=== PATIENT | female | born 1995 | race Caucasian/White ===

== ENCOUNTER 2019-03-04 14:11 | Emergency (ER) | payer BC ==
[2019-03-04] MEDS ORDERED: NS 1,000 ML IV ONE (14:30)
[2019-03-04] MEDS ORDERED: ONDANSETRON 4 MG/2 ML VIAL IVP ONE (14:30)
== END 2019-03-04 16:10 | disposition home or self-care (01) ==
DX: K31.84 Gastroparesis (principal); E86.9 Volume depletion, unspecified

== ENCOUNTER 2019-03-05 08:42 | Emergency (ER) | payer BC ==
[2019-03-05] MEDS ORDERED: NS 1,000 ML IV ONE (09:17)
[2019-03-05] MEDS ORDERED: PROMETHAZINE HCL 25 MG/ML INJ IVP ONE (09:17)
--- NOTE | 2019-03-05 10:56 | EDPHY ---
H & P Stated Complaint: n/v - Personal History Current Tetanus/Diphtheria Vaccine: Yes Current Tetanus Diphtheria and Acellular Pertussis (TDAP): Yes - Medical/Surgical History Hx Asthma: No Hx Chronic Respiratory Disease: No Hx Diabetes: No Hx Cardiac Disease: No Hx Renal Disease: No Hx Cirrhosis: No Hx Alcoholism: No Hx HIV/AIDS: No Hx Splenectomy or Spleen Trauma: No Other PMH: gastroperesis, ivda, tachycardia, dysautonomia, cardiac surg as an - Social History Smoking Status: Current every day smoker Time Seen by Provider: 03/05/19 09:03 HPI/ROS: Chief complaint: Gastroparesis, Vomiting History of present illness: This is a 23-year-old female who presents to the emergency department for vomiting. Patient has a history of gastroparesis. She has recently had a flare up with worsening nausea and vomiting. She was seen in this emergency department yesterday for similar. She normally uses Zofran and Reglan but it has not been controlling the vomiting. In addition, she is currently detoxing from heroin which is making things harder. She was given Phenergan yesterday, it works well but she cannot keep it down long enough to make it work at this time. No fevers. No diarrhea. No urinary symptoms. Review of systems: A 10 point review of systems was obtained and other than described above was negative (Vahid Parry) - Physical Exam Exam: General Appearance: Alert, vomiting. Eyes: Pupils equal and round no pallor or injection. ENT, Mouth: Mucous membranes moist. Respiratory: There are no retractions, lungs are clear to auscultation. Cardiovascular: Regular rate and rhythm. Gastrointestinal: Abdomen is soft and non tender, no masses, bowel sounds normal. Neurological: Alert. Strength and sensation intact and symmetrical. Skin: Warm and dry, no rashes. Musculoskeletal: Neck is supple non tender. Extremities are symmetrical, full range of motion. Psychiatric: Patient is oriented X 3, there is no agitation. (Vahid Parry) Constitutional: Initial Vital Signs Temperature (C) 36.9 C 03/05/19 08:45 Heart Rate 43 L 03/05/19 08:45 Respiratory Rate 24 H 03/05/19 08:45 Blood Pressure 105/76 03/05/19 08:45 O2 Sat (%) 100 03/05/19 08:45 O2 Delivery Mode Room Air Allergies/Adverse Reactions: doxycycline Allergy (Verified 03/05/19 08:44) Home Medications: Medication Instructions Recorded Promethazine HCl [Phenergan 25mg 25 mg PO BID PRN #20 tab 03/04/19 (*)] Prazosin HCl 03/05/19 Promethazine HCl [Phenergan] 25 mg RC Q8 PRN #20 supp.rect 03/05/19 Zoloft 25mg (*) 03/05/19 traZODone 03/05/19 Medical Decision Making ED Course/Re-evaluation: Patient is seen under the supervision of my secondary supervising physician Dr. Terra Kelly. Patient presents to the emergency department for vomiting. History of gastroparesis. Currently going through heroin withdrawal. No evidence of complications from that. She does have a benign abdominal exam. She is IV hydrated. Symptomatic treated with Phenergan. Does have improvement in symptoms. However, nursing staff has caught patient sticking her finger down her throat multiple times attempting to induce vomiting. She will be discharged home. She is given a prescription for rectal Phenergan. Return precautions are given. She is to follow up with GI. (Vahid Parry) The patient was evaluated and managed by the physician pathologist assistant. I have reviewed this chart and I agree with the findings and plan of care as documented , as indicated by my signature. I am the secondary supervising physician. ( Terra Kelly) Differential Diagnosis: Included but not limited to gastritis, gastroenteritis, gastroparesis, intentionally causing herself to vomit (Vahid Parry) - Data Points Laboratory Results: Laboratory Results 03/05/19 10:45 03/05/19 10:45 Medications Given: Discontinued Medications Sodium Chloride (Ns) 1,000 mls @ 0 mls/hr IV EDNOW ONE; Wide Open PRN Reason: Protocol Stop: 03/05/19 09:18 Last Admin: 03/05/19 09:21 Dose: 1,000 mls Promethazine HCl (Phenergan) 25 mg IVP EDNOW ONE Stop: 03/05/19 09:18 Last Admin: 03/05/19 09:22 Dose: 25 mg Departure - Departure Disposition: Home, Routine, Self-Care Clinical Impression: Vomiting Condition: Good Instructions: Acute Nausea and Vomiting (ED) Additional Instructions: Follow-up with a primary care doctor and syrup mixer assistant for further evaluation and care Use rectal Phenergan for symptom control If symptoms worsen or new symptoms develop return to the emergency room for recheck Referrals: NONE *PRIMARY CARE P,. [Primary Care Provider] - As per Instructions [facility],. [Clinic] - As per Instructions Bernard Toro MD [Medical Doctor] - As per Instructions Prescriptions: Promethazine HCl [Phenergan] 25 mg RC Q8 PRN #20 supp.rect PRN Reason: Nausea/Vomiting, Use 1st
[2019-03-05 10:57] LABS: PLATELET COUNT 323 10^3/uL (150-400)
[2019-03-05 11:44] VITALS: BP 124/71
--- NOTE | 2019-03-05 11:44 | ASMTCMCOM ---
CM Note CM Note Notes: Pt presented to the ED for N/V. Pt was seen yesterday for the similar reasons and was referred to followup with [facility]; pt she states she called and the office said the soonest appt is about a month from now. This CM called and spoke w/GI of the [facility] staff; they requested the ED provider call the on-call GI specialist, Dr Toro, and discuss the need for pt to be seen sooner & if Dr Toro feels the pt does need to be seen sooner then he would contact his office and authorize them to schedule a sooner appt. This CM relayed this info to the ED Provider and he stated that pt is okay to follow up whenever [facility] can schedule her, even if it is a month out. This CM relayed this to the pt; pt okay with this plan and states she will call to schedule the soonest appt and also request to be put on their cancellation list. This CM faxed over pt's 03/04 and today's ED Report to of [facility] so they can schedule the pt. Pt states she is currently receiving heroin detox treatment at [facility]. Pt states she will followup with her PCP Sara Nunes. CM available for further assistance if needed. Date Signed: 03/05/2019 11:43 AM Electronically Signed By:Tory Blanc RN
== END 2019-03-05 11:30 | disposition home or self-care (01) ==
DX: R11.2 Nausea with vomiting, unspecified (principal); F11.229 Opioid dependence with intoxication, unspecified; E86.9 Volume depletion, unspecified
CPT/HCPCS: 96374; J2550

== ENCOUNTER 2019-03-08 15:47 | Emergency (ER) | payer BC ==
--- NOTE | 2019-03-08 16:31 | EDPHY ---
H & P Stated Complaint: vomiting for one week, can't stop, general abd pain, vomiting bile - Personal History LMP (Females 10-55): Now Current Tetanus/Diphtheria Vaccine: Unsure Current Tetanus Diphtheria and Acellular Pertussis (TDAP): Unsure - Medical/Surgical History Hx Asthma: No Hx Chronic Respiratory Disease: No Hx Diabetes: No Hx Cardiac Disease: No Hx Renal Disease: No Hx Cirrhosis: No Hx Alcoholism: No Hx HIV/AIDS: No Hx Splenectomy or Spleen Trauma: No Other PMH: gastroperesis, ivda, tachycardia, dysautonomia, cardiac surg as an infant;. heroin addiction (presently in rehab 02/2019) - Social History Smoking Status: Current every day smoker Time Seen by Provider: 03/08/19 16:02 HPI/ROS: CHIEF COMPLAINT: Vomiting x1 week HISTORY OF PRESENT ILLNESS: 23-year-old female history of gastroparesis, currently residing it [facility] heroin detoxification [facility], seen the ER 3 days ago for similar complaints, treated and released, told to follow up with GI of the [facility]. She does not have a standing appointment at this time. She was given a prescription for Phenergan suppositories which she has been taking as directed which arrives intermittent relief. Today she ate a popsicle and some toes which he tolerated well but notes that she will have breakthrough episodes of retching. Urinary output has been normal. Bowel movements have been normal. No melena hematochezia. No dizziness. No syncope or near syncope. No abdominal pain. No back or flank pain. No urinary abnormality. PRIMARY CARE PROVIDER: REVIEW OF SYSTEMS: 10 systems reviewed and negative with the exception of the elements mentioned in the history of present illness PAST MEDICAL & SURGICAL HISTORY: Gastroparesis SOCIAL HISTORY: Currently living in heroin detoxification facility PHYSICAL EXAM (Prior to examination, patient consented to physical exam, hands were washed and my usual and customary physical exam procedures followed) 1) GENERAL: Well-developed, well-nourished, alert and oriented. Appears to be in no acute distress. 2) HEAD: Normocephalic, atraumatic 3) HEENT: Pupils equal, round, reactive to light bilaterally. Sclera anicteric. Nasopharynx, oropharynx, clear, no lesions. Moist Mucous membranes. 4) NECK: Full range of motion, no meningeal signs. 5) LUNGS: Clear auscultation bilaterally, no wheezes, no rhonchi, no retractions. 6) HEART: Regular rate and rhythm, no murmur, no heave, no gallop. 7) ABDOMEN: No guarding, no rebound, no focal tenderness, negative McBurney's, negative Jones's, negative Rovsing's, negative peritoneal sign, I am unable to elicit any abdominal pain on exam 8) MUSCULOSKELETAL: Moving all extremities, no focal areas of tenderness, no obvious trauma. No peripheral edema or discoloration. 9) BACK: No CVA tenderness, no midline vertebral tenderness, no fluctuance, no step-off, no obvious trauma, no visual or palpable abnormality. 10) SKIN: No rash, no petechiae. 11) Psychiatric: Patient is oriented X 3, there is no agitation. DIFFERENTIAL DIAGNOSIS: In no particular order including but not limited to volume depletion, hypokalemia, dehydration, gastroenteritis, pancreatitis, acute appendicitis (Roya,Matt Jocelin) Constitutional: Initial Vital Signs Temperature (C) 36.7 C 03/08/19 15:49 Heart Rate 79 03/08/19 15:49 Respiratory Rate 14 03/08/19 15:49 Blood Pressure 111/74 03/08/19 15:49 O2 Sat (%) 97 03/08/19 15:49 O2 Delivery Mode Room Air Allergies/Adverse Reactions: doxycycline Allergy (Verified 03/05/19 08:44) Home Medications: Medication Instructions Recorded Promethazine HCl [Phenergan 25mg 25 mg PO BID PRN #20 tab 03/04/19 (*)] Prazosin HCl 03/05/19 Promethazine HCl [Phenergan] 25 mg RC Q8 PRN #20 supp.rect 03/05/19 Zoloft 25mg (*) 03/05/19 traZODone 03/05/19 Scopolamine Hydrobromide 1 patch TD Q72H #3 patch 03/08/19 [Scopolamine Patch] busPIRone 03/08/19 Medical Decision Making ED Course/Re-evaluation: 4:30 p.m.: Patient has moist mucous membranes, normal urine output, no subjective or objective abdominal pain on exam. At this time, doubt acute surgical abdominal pathology, doubt volume depletion. She expresses her frustration at having chronic nausea. I empathized with her ongoing symptoms. We discussed options including prescription for scopolamine patch which she accepts. She declines all these. She depressive frustration states that she wants to leave the ER. Recommend follow up with Gastroenterology. (Matt Pryor) Other Provider: The patient was evaluated and managed by the Physician Curriculum Designer. My co- signature indicates that I have reviewed this chart and I agree with the findings and plan of care as documented. I am the secondary supervising physician. (Sakshi Carolina) - Data Points Medications Given: Discontinued Medications Scopolamine HBr (Scopolamine Patch) 1 patch TD Q24H ONE Stop: 03/08/19 16:37 Last Admin: 03/08/19 16:44 Dose: 1 patch Departure - Departure Disposition: Home, Routine, Self-Care Clinical Impression: Nausea & vomiting Qualifiers: Vomiting type: unspecified Vomiting Intractability: non-intractable Qualified Code(s): R11.2 - Nausea with vomiting, unspecified Condition: Good Instructions: Acute Nausea and Vomiting (ED) Additional Instructions: Recommend clear liquid diet with advance to bland foods. Return to the ER if you have decreased urine output, if you are unable tolerate fluid intake or any other symptoms that concern you. DO NOT TAKE PHENERGAN WHILE ON SCOPALAMINE MEDICATION Referrals: Bernard Toro MD [Medical Doctor] - 2-3 days, call for appt. Prescriptions: Scopolamine Hydrobromide [Scopolamine Patch] 1 patch TD Q72H #3 patch
[2019-03-08] MEDS ORDERED: SCOPOLAMINE HYDROBROMIDE 1 MG/3 DAYS PATCH TD ONE (16:36)
[2019-03-08 16:42] VITALS: BP 112/78
[2019-03-09] MEDS ORDERED: PATCH REMOVAL 1 EA PATCH TD ONE (16:36)
== END 2019-03-08 16:49 | disposition home or self-care (01) ==
DX: R11.2 Nausea with vomiting, unspecified (principal)

== ENCOUNTER 2019-03-11 00:54 | Emergency (ER) | payer BC ==
[2019-03-11] MEDS ORDERED: NS 1,000 ML IV ONE ×2 (01:14)
--- NOTE | 2019-03-11 01:15 | EDPHY ---
H & P Stated Complaint: vomiting for 8days and now having back and side pain Time Seen by Provider: 03/11/19 01:14 HPI/ROS: HPI CHIEF COMPLAINT: Vomiting. HISTORY OF PRESENT ILLNESS: 23-year-old female, recently here in the emergency room as a history of gastroparesis, presents emergency room ongoing vomiting. Patient states for the past 8 days she has had continuous vomiting. She reports to me this is her 4th ER visit. She states she vomits anything that she eats, additionally vomits clear secretions. She denies diarrhea. Now she is complaining of low back pain and some abdominal pain with this. She denies any chest pain or shortness of breath. She does states she has a history of gastroparesis with that delayed gastric emptying study. She has not seen GI. She has been referred. Past Medical History: Gastroparesis Past Surgical History: Cardiac surgery as a child Social History: Currently in a detox center. Family History: Noncontributory ROS REVIEW OF SYSTEMS: 10 Systems were reviewed and negative with the exception of the elements mentioned in the history of present illness. Exam Constitutional nontoxic triage nursing summary reviewed, vital signs reviewed, awake/alert. Eyes normal conjunctivae and sclera, EOMI, PERRLA. HENT normal inspection, atraumatic, moist mucus membranes, no epistaxis, neck supple/ no meningismus, no raccoon eyes. Respiratory clear to auscultation bilaterally, normal breath sounds, no respiratory distress, no wheezing. Cardiovascular rate normal, regular rhythm, no murmur, no edema, distal pulses normal. Gastrointestinal mild tender palpation diffusely, no peritoneal signs no rebound, no guarding, normal bowel sounds, no distension, no pulsatile mass. Genitourinary no CVA tenderness. Musculoskeletal no midline vertebral tenderness, full range of motion, no calf swelling, no tenderness of extremities, no meningismus, good pulses, neurovascularly intact. Skin pink, warm, & dry, no rash, skin atraumatic. Neurologic awake, alert and oriented x 3, AAOx3, moves all 4 extremities equally, motor intact, sensory intact, CN II-XII intact, normal cerebellar, normal vision, normal speech. Psychiatric normal mood/affect. Heme/Lymph/Immune no lymphadenopathy. Differential Diagnosis: Differential diagnosis includes but is not limited to and in no particular order: Bowel obstruction, appendicitis, gallbladder disease, diverticulitis, colitis, enteritis, perforated viscus, gastritis, GERD , esophagitis, urinary tract infection, pyelonephritis, kidney stones Medical Decision Making: Plan for this patient IV establishment IV fluid bolus , IV Haldol for intractable nausea vomiting IV Benadryl IV Pepcid, basic labs, CT scan abdomen pelvis with IV contrast. Re-evaluation Re-evaluation: CT scan abdomen pelvis with IV contrast faxed to me by direct Radiology at time 2:59 a.m. This shows no acute intra-abdominal pelvic abnormality there is a left adnexal 5 cm ovarian cyst. Patient has no pain at this area. 0432AM: Patient re-evaluated this time resting comfortably. Labs reviewed and unremarkable. She is not vomiting and resting comfortably. Her CT scans been reviewed and shows no acute inflammation. Patient re-evaluated 4:33 a.m. Abdomen soft nontender. She is resting and sleeping. 6:37 a.m. patient is requesting to be discharged she p.o. Challenge well without any vomiting. Her labs reassuring, her CT scan did not show any acute inflammation. She has a follow-up appoint with Gastroenterology today. I do recommend she keeps her appointment in is seen by them. Additionally if she has worsening abdominal pain, vomiting, not doing well she needs return to the emergency room. Source: Patient - Personal History LMP (Females 10-55): 1-7 Days Ago Current Tetanus/Diphtheria Vaccine: No Current Tetanus Diphtheria and Acellular Pertussis (TDAP): No - Medical/Surgical History Hx Asthma: No Hx Chronic Respiratory Disease: No Hx Diabetes: No Hx Cardiac Disease: Yes Hx Renal Disease: No Hx Cirrhosis: No Hx Alcoholism: No Hx HIV/AIDS: No Hx Splenectomy or Spleen Trauma: No Other PMH: gastroperesis, ivda, tachycardia, dysautonomia, cardiac surg as an ;. heroin addiction (presently in rehab 02/2019) - Social History Smoking Status: Current every day smoker Constitutional: Initial Vital Signs Temperature (C) 36.7 C 03/11/19 00:57 Heart Rate 92 03/11/19 00:57 Respiratory Rate 16 03/11/19 00:57 Blood Pressure 124/77 H 03/11/19 00:57 O2 Sat (%) 98 03/11/19 00:57 O2 Delivery Mode Room Air Allergies/Adverse Reactions: doxycycline Allergy (Verified 05/02/19 01:01) Home Medications: Medication Instructions Recorded Promethazine HCl [Phenergan] 25 mg RC Q8 PRN #20 supp.rect 03/05/19 traZODone 03/05/19 Scopolamine Hydrobromide 1 patch TD Q72H #3 patch 03/08/19 [Scopolamine Patch] Promethazine HCl 25 mg PO Q6-8PRN PRN #10 tablet 03/11/19 Zicam 03/11/19 Medical Decision Making - Data Points Laboratory Results: Laboratory Results 03/11/19 01:30 03/11/19 01:30 03/11/19 03/11/19 03/11/19 03:20 01:30 01:30 WBC RBC Hgb Hct MCV MCH MCHC RDW Plt Count MPV Neut % (Auto) Lymph % (Auto) Nance % (Auto) Eos % (Auto) Baso % (Auto) Nucleat RBC Rel Count Absolute Neuts (auto) Absolute Lymphs (auto) Absolute Monos (auto) Absolute Eos (auto) Absolute Basos (auto) Absolute Nucleated RBC Immature Gran % Immature Gran # Sodium 135 mEq/L mEq/L (135-145) Potassium 4.2 mEq/L mEq/L (3.5-5.2) Chloride 105 mEq/L mEq/L (97-110) Carbon Dioxide 19 mEq/l L mEq/l (22-31) Anion Gap 11 mEq/L mEq/L (6-14) BUN 14 mg/dL mg/dL (7-23) Creatinine 0.6 mg/dL mg/dL (0.6-1.0) Estimated GFR > 60 Glucose 103 mg/dL H mg/dL (70-100) Calcium 9.4 mg/dL mg/dL (8.5-10.4) Total Bilirubin 0.6 mg/dL mg/dL (0.1-1.4) Conjugated Bilirubin 0.1 mg/dL mg/dL (0.0-0.5) Unconjugated Bilirubin 0.5 mg/dL mg/dL (0.0-1.1) AST 36 IU/L IU/L (14-46) ALT 88 IU/L H IU/L (9-52) Alkaline Phosphatase 76 IU/L IU/L (38-126) Total Protein 7.4 g/dL g/dL (6.3-8.2) Albumin 4.5 g/dL g/dL (3.5-5.0) Lipase 77 IU/L IU/L (23-300) Beta HCG, Qual NEGATIVE Urine Color YELLOW Urine Appearance HAZY Urine pH 7.0 (5.0-7.5) Ur Specific [place] 1.028 (1.002-1.030) Urine Protein NEGATIVE (NEGATIVE) Urine Ketones NEGATIVE (NEGATIVE) Urine Blood 3+ H (NEGATIVE) Urine Nitrate NEGATIVE (NEGATIVE) Urine Bilirubin NEGATIVE (NEGATIVE) Urine Urobilinogen NEGATIVE EU EU (0.2-1.0) Ur Leukocyte Esterase NEGATIVE (NEGATIVE) Urine RBC 50-182 /hpf H /hpf (0-3) Urine WBC 0-1 /hpf /hpf (0-3) Ur Epithelial Cells TRACE /lpf /lpf (NONE-1+) Urine Mucus TRACE /lpf /lpf (NONE-1+) Urine Glucose NEGATIVE (NEGATIVE) Urine Opiates Screen NEGATIVE (NEGATIVE) Urine Barbiturates NEGATIVE (NEGATIVE) Ur Phencyclidine Scrn NEGATIVE (NEGATIVE) Ur Amphetamine Screen NEGATIVE (NEGATIVE) U Benzodiazepines Scrn NEGATIVE (NEGATIVE) Urine Cocaine Screen NEGATIVE (NEGATIVE) U Marijuana (THC) Screen NEGATIVE (NEGATIVE) 03/11/19 01:30 WBC 10.90 10^3/uL H 10^3/uL (3.80-9.50) RBC 4.89 10^6/uL 10^6/uL (4.18-5.33) Hgb 14.3 g/dL g/dL (12.6-16.3) Hct 42.2 % % (38.0-47.0) MCV 86.3 fL fL (81.5-99.8) MCH 29.2 pg pg (27.9-34.1) MCHC 33.9 g/dL g/dL (32.4-36.7) RDW 13.8 % % (11.5-15.2) Plt Count 419 10^3/uL H 10^3/uL (150-400) MPV 9.5 fL fL (8.7-11.7) Neut % (Auto) 52.3 % % (39.3-74.2) Lymph % (Auto) 38.3 % % (15.0-45.0) Nance % (Auto) 6.3 % % (4.5-13.0) Eos % (Auto) 2.4 % % (0.6-7.6) Baso % (Auto) 0.4 % % (0.3-1.7) Nucleat RBC Rel Count 0.0 % % (0.0-0.2) Absolute Neuts (auto) 5.70 10^3/uL 10^3/uL (1.70-6.50) Absolute Lymphs (auto) 4.18 10^3/uL H 10^3/uL (1.00-3.00) Absolute Monos (auto) 0.69 10^3/uL 10^3/uL (0.30-0.80) Absolute Eos (auto) 0.26 10^3/uL 10^3/uL (0.03-0.40) Absolute Basos (auto) 0.04 10^3/uL 10^3/uL (0.02-0.10) Absolute Nucleated RBC 0.00 10^3/uL 10^3/uL (0-0.01) Immature Gran % 0.3 % % (0.0-1.1) Immature Gran # 0.03 10^3/uL 10^3/uL (0.00-0.10) Sodium Potassium Chloride Carbon Dioxide Anion Gap BUN Creatinine Estimated GFR Glucose Calcium Total Bilirubin Conjugated Bilirubin Unconjugated Bilirubin AST ALT Alkaline Phosphatase Total Protein Albumin Lipase Beta HCG, Qual Urine Color Urine Appearance Urine pH Ur Specific [place] Urine Protein Urine Ketones Urine Blood Urine Nitrate Urine Bilirubin Urine Urobilinogen Ur Leukocyte Esterase Urine RBC Urine WBC Ur Epithelial Cells Urine Mucus Urine Glucose Urine Opiates Screen Urine Barbiturates Ur Phencyclidine Scrn Ur Amphetamine Screen U Benzodiazepines Scrn Urine Cocaine Screen U Marijuana (THC) Screen Medications Given: Discontinued Medications Diphenhydramine HCl (Benadryl Injection) 50 mg IVP EDNOW ONE Stop: 03/11/19 01:25 Last Admin: 03/11/19 01:45 Dose: 50 mg Haloperidol Lactate (Haldol Injection) 2.5 mg IVP EDNOW ONE Stop: 03/11/19 01:25 Last Admin: 03/11/19 01:46 Dose: 2.5 mg Sodium Chloride (Ns) 1,000 mls @ 0 mls/hr IV EDNOW ONE; Wide Open PRN Reason: Protocol Stop: 03/11/19 01:15 Last Admin: 03/11/19 01:36 Dose: 1,000 mls Sodium Chloride (Ns) 1,000 mls @ 0 mls/hr IV EDNOW ONE; Wide Open PRN Reason: Protocol Stop: 03/11/19 01:15 Last Admin: 03/11/19 01:37 Dose: 1,000 mls Famotidine 20 mg/ Sodium (Chloride) 102 mls @ 408 mls/hr IV EDNOW ONE Stop: 03/11/19 01:38 Last Admin: 03/11/19 01:45 Dose: 102 mls Departure - Departure Disposition: Home, Routine, Self-Care Clinical Impression: Abdominal pain Qualifiers: Abdominal location: generalized Qualified Code(s): R10.84 - Generalized abdominal pain Nausea & vomiting Qualifiers: Vomiting type: unspecified Vomiting Intractability: non-intractable Qualified Code(s): R11.2 - Nausea with vomiting, unspecified Condition: Good Instructions: Dehydration (ED), Acute Nausea and Vomiting (ED) Additional Instructions: 1. [place] diet no spicy fatty greasy foods. 2. Return to the emergency room if you have worsening abdominal pain, fever, vomiting 3. Please follow up with Gastroenterology. Referrals: KATI VILLATORO PAC [Primary Care Provider] - As per Instructions Bernard Toro MD [Medical Doctor] - As per Instructions Prescriptions: Promethazine HCl 25 mg PO Q6-8PRN PRN #10 tablet PRN Reason: Nausea/Vomiting, Use 1st
[2019-03-11] MEDS ORDERED: HALOPERIDOL LACT 5 MG/ML INJ IVP ONE (01:24)
[2019-03-11] MEDS ORDERED: FAMOTIDINE 20 MG in NS 100 ML IV ONE (01:24)
[2019-03-11 01:47] LABS: PLATELET COUNT 419 10^3/uL (150-400)
[2019-03-11] MEDS ORDERED: IOPAMIDOL (ISOVUE-300) 100 ML BTL ONE (01:50)
[2019-03-11 06:59] VITALS: BP 108/65
== END 2019-03-11 06:59 | disposition home or self-care (01) ==
DX: R10.84 Generalized abdominal pain (principal); R11.2 Nausea with vomiting, unspecified; E86.9 Volume depletion, unspecified
CPT/HCPCS: 80305; 96374; J1200; J1630; Q9967